=== PATIENT | female | born 1985 | race Hispanic/Latino ===

== ENCOUNTER 2018-10-03 08:19 | Day surgery (SDC) | payer OTHER ==
[2018-09-28 09:49] LABS: Absolute Lymphocytes (CBC) 1.5 K/uL (0.7-4.9); Absolute Monocytes 0.3 K/uL (0.1-1.3); Absolute Neutrophil 2.3 K/uL (1.8-8.0); Basophils % 0.7 % (0-1.3); Hematocrit 38.4 % (36.0-45.0); Lymphocytes % 35.5 % (15.3-44.8); MPV 9.1 fL (7.6-11.3); Monocytes % 6.1 % (3.3-12.3); RBC Red Blood Cell Count 4.32 M/uL (3.86-4.86)
--- OUTSIDE RECORDS SUMMARY | 2018-10-03 08:21 | XMS REPORT ---
:1985 Author Organization [employer] Care Team Providers Name Role Phone Jarek Noe Provider Role Unavailable Allergies, Adverse Reactions, Alerts Substance Reaction Event Type N.K.D.A. Info Not Available Non Drug Allergy Problems Problem Type Condition Code Onset Dates Condition Status Assessment Abnormal uterine bleeding N93.9 Active Problem Abnormal uterine bleeding N93.9 Active Medications No Known Medications Results No Known Results Summary Purpose [facility] Submission
--- OUTSIDE RECORDS SUMMARY | 2018-10-03 08:21 | XMS REPORT ---
:1985 Author Organization [employer] Care Team Providers Name Role Phone Jarek Noe Provider Role Unavailable Allergies, Adverse Reactions, Alerts Substance Reaction Event Type N.K.D.A. Info Not Available Non Drug Allergy Problems Problem Type Condition Code Onset Dates Condition Status Problem Abnormal uterine bleeding N93.9 Active Problem Endometrial polyp N84.0 Active Assessment Abnormal uterine bleeding N93.9 Active Assessment Endometrial polyp N84.0 Active Medications No Known Medications Results No Known Results Summary Purpose [facility] Submission
--- OUTSIDE RECORDS SUMMARY | 2018-10-03 08:21 | XMS REPORT ---
:1985 Author Organization [employer] Care Team Providers Name Role Phone Jarek Noe Provider Role Unavailable Allergies No Known Allergies Problems Problem Type Condition Code Onset Dates Condition Status Problem Abnormal uterine bleeding N93.9 Active Medications No Known Medications Results No Known Results Summary Purpose [employer] Submission
--- OUTSIDE RECORDS SUMMARY | 2018-10-03 08:21 | XMS REPORT ---
:1985 Author Organization [employer] Care Team Providers Name Role Phone Jarek Noe Provider Role Unavailable Allergies, Adverse Reactions, Alerts Substance Reaction Event Type N.K.D.A. Info Not Available Non Drug Allergy Problems Problem Type Condition Code Onset Dates Condition Status Assessment Well woman exam with routine Z01.419 Active gynecological exam Assessment Encounter for gynecological Z01.419 Active examination without abnormal finding Medications No Known Medications Results Name Result Date Reference Range Unit Abnormality Flag URINALYSIS AUTO W/O SCOPE (95833) ----NIT Neg 20171115 ----URO 0.2 20171115 ----PROTEIN Neg 20171115 ----pH 5.5 20171115 ----BLO Neg 20171115 ----GLUCOSE Neg 20171115 ----TAMEKA 1+ 20171115 ----BILIRUBIN Neg 20171115 ----KETONES 2+ 20171115 ----SPECIFIC GRAVITY 1.015 20171115 Summary Purpose [employer] Submission
--- OUTSIDE RECORDS SUMMARY | 2018-10-03 08:21 | XMS REPORT ---
:1985 Author Organization [employer] Care Team Providers Name Role Phone Jarek Noe Provider Role Unavailable Allergies No Known Allergies Problems No Known Problems Medications No Known Medications Results No Known Results Summary Purpose [employer] Submission
[2018-10-03] MEDS ORDERED: SILVER NITRATE 1 APPL TOP ONE ×2 (10:26→12:13)
[2018-10-03] MEDS ORDERED: LIDOCAINE 1.5% W/EPI AMP 5 ML ONE (10:26)
[2018-10-03] MEDS ORDERED: NA CHLORIDE 0.9% 1,000 ML ONE (10:26)
[2018-10-03] MEDS: Ringers Lactate 1,000 ML IV ONE (10:35)
[2018-10-03 10:51] VITALS: O2SAT 100
[2018-10-03] MEDS ORDERED: FENTANYL CITR 100 MCG/2 ML ONE (11:05)
[2018-10-03] MEDS ORDERED: PROPOFOL 200 MG/20 ML VIAL IV ONE (11:05)
[2018-10-03] MEDS ORDERED: MIDAZOLAM HCL 2 MG/2 ML INJ ONE (11:06)
[2018-10-03] MEDS ORDERED: LIDOCAINE 2% MPF 5 ML VIAL ONE (11:07)
[2018-10-03] MEDS ORDERED: ONDANSETRON 4 MG/2 ML VIAL ONE (11:07)
[2018-10-03] MEDS ORDERED: KETOROLAC 30 MG/ML INJ IV PRN (11:50)
[2018-10-03] MEDS ORDERED: ONDANSETRON 4 MG (ODT) TAB PO PRN (11:50)
[2018-10-03] MEDS ORDERED: IBUPROFEN 400 MG TAB PO PRN (11:50)
--- NOTE | 2018-10-03 11:50 | P.OP ---
Leather Tacker: NONE,NONE Preoperative diagnosis: menorrhagia Postoperative diagnosis: same Primary procedure: Hysteroscopy, D&C, Novasure endometrial ablation Anesthesia: general Estimated blood loss: 50cc Specimen: Endometrial curettings Operative Technique: Findings: Normal external female genitalia, vagina is pink, moist, normal rugae , cervix is very large noted to be dilated no lesions present. On bimanual exam the uterus is in midposition mobile. Palpates to be about 8 cm. Uterus sounded was found to be 9 cm in length. Procedure: The patient was taken to the operating room, where general anesthesia was found to be adequate. She was prepped and draped in the usual sterile fashion. A speculum was placed into the vagina. The anterior lip of the cervix was grasped with a single-tooth tenaculum. The cervix was minimally dilated with #17 Hanks dilator. The 5-mm 30-degree hysteroscope was then inserted under direct visualization using lactated Ringer' s as a distention medium. The uterine cavity was viewed and the above normal findings were noted. Dilation curettage was performed. NovaSure device was then placed to the uterus. It was set at a length of 6.5+ with a width of 3.5. Power was 125 a total cycle time was 56 seconds. Hysteroscopy was then again performed pictures were obtained. The tenaculum was removed. Bleeding was noted and was brought under control with silver nitrate sticks and pressure. The patient was then awakened, transferred, and taken to the recovery room in satisfactory condition. Complications: None Transferred to: Recovery Room Condition: Good
[2018-10-03] MEDS ORDERED: KETOROLAC 30 MG/ML INJ ONE (12:29)
[2018-10-03 12:40] VITALS: TEMP 97.1
[2018-10-03] MEDS ORDERED: IBUPROFEN 200 MG TAB PO ONE (12:58)
[2018-10-03] MEDS ORDERED: IBUPROFEN 400 MG TAB ONE (12:59)
[2018-10-03 14:00] VITALS: BP 102/59
== END 2018-10-03 13:50 | disposition home or self-care (01) ==
LOC: OR 08:19
PROVIDERS: ATTEND Student in an Organized Health Care Education/Training Program
PROC: 0U5B8ZZ Destruction of Endometrium, Via Natural or Artificial Opening Endoscopic (ICD-10-PCS; principal; 2018-10-03 11:00)
PROC: 0UDB7ZX Extraction of Endometrium, Via Natural or Artificial Opening, Diagnostic (ICD-10-PCS; 2018-10-03 11:00)
DX: N93.9 Abnormal uterine and vaginal bleeding, unspecified (principal)
CPT/HCPCS: 36415; 81025; 85025; 86850; 86900; 86901; 88305; J2001; J2250; J2405; J2704; J3010; J7030